=== PATIENT | female | born 1980 | race Asian ===

== ENCOUNTER 2016-12-07 04:55 | Inpatient (IN) | payer OTHER ==
[~2016-12-07] VITALS: Ht 154.9 cm; Wt 67.1 kg
[2016-12-07] MEDS ORDERED: OXYTOCIN/NORMAL SALINE 1,000 ML IV SCH ×2 (05:03→20:18)
[2016-12-07] MEDS ORDERED: NALBUPHINE HCL 10 MG/ML AMP IVP PRN (05:15)
[2016-12-07] MEDS ORDERED: AMPICILLIN SODIUM 2 GM VIAL ONE (05:48)
[2016-12-07] MEDS: LR 1,000 ML IV SCH ×2 (05:54→19:50)
[2016-12-07] MEDS ORDERED: AMPICILLIN SODIUM 2 GM in NS 100 ML IV ONE (06:00)
[2016-12-07 06:29] VITALS: BP_SYST 110
[2016-12-07 06:44] LABS: BASOPHILS % (AUTO) 0.4 % (0.0-2.0); EOSINOPHILS # (AUTO) 0.1 K/uL (0.0-0.4); EOSINOPHILS % (AUTO) 1.3 % (0.0-4.0); HEMATOCRIT 34.1 % (36-48); HEMOGLOBIN 11.6 g/dL (12.0-16.0); LYMPHOCYTES # (AUTO) 1.5 K/uL (1.0-5.5); LYMPHOCYTES % (AUTO) 19.3 % (20.5-51.5); MEAN CORPUSCULAR HEMOGLOBIN 32 pg (27-31); MEAN CORPUSCULAR HGB CONC 34 % (32-36); MEAN CORPUSCULAR VOLUME 95 fL (79.0-98.0); MONOCYTES # (AUTO) 0.5 K/uL (0.0-1.0); MONOCYTES % (AUTO) 6.4 % (1.7-9.3); NEUTROPHILS # (AUTO) 5.5 K/uL (1.8-7.7); NEUTROPHILS % (AUTO) 72.6 % (40.0-70.0); PLATELET COUNT (AUTO) 207 K/uL (130-430); RED BLOOD CELL COUNT(AUTO) 3.59 MIL/uL (4.2-6.2); RED CELL DISTRIBUTION WIDTH 12.6 % (9.0-15.0); WHITE BLOOD COUNT (AUTO) 7.6 K/uL (4.8-10.8)
[2016-12-07] MEDS ORDERED: FENT2mCg/mL-ROPIVA0.2%/NS EPID 150 ML EP ONE (08:45)
[2016-12-07] MEDS: AMPICILLIN SODIUM 1 GM in NS 50 ML IV SCH ×3 (09:55→19:03)
[2016-12-07] MEDS ORDERED: OXYTOCIN/NORMAL SALINE 1,000 ML IV ONE (20:18)
[2016-12-07] MEDS ORDERED: DOCUSATE SODIUM 100 MG CAPSULE PO PRN (20:30)
[2016-12-07] MEDS ORDERED: DERMOPLAST SPRAY TP PRN (20:30)
[2016-12-07] MEDS ORDERED: HYDROcodone/ACETAMIN 5-325 MG TAB (NORCO/ VICODIN) PO PRN ×2 (20:30)
[2016-12-07] MEDS ORDERED: SENNOSIDES/DOCUSATE SODIUM 1 TAB TABLET(SENOKOT-S) PO PRN (20:30)
[2016-12-07] MEDS ORDERED: METHYLERGONOVINE MALEATE 0.2 MG TABLET PO PRN (20:30)
[2016-12-07] MEDS ORDERED: LANOLIN 7 GM OINT. TP PRN (20:30)
[2016-12-07] MEDS ORDERED: HYDROCORTISONE 0.5%, 28.35 GM TOPICAL CREAM TP PRN (20:30)
[2016-12-07] MEDS ORDERED: GLYCERIN/WITCH HAZEL (TUCKS PADS) TP PRN (20:30)
[2016-12-07] MEDS ORDERED: ANUSOL 1 EA SUPP.RECT (PREPARATION H) RC PRN (20:30)
[2016-12-07] MEDS ORDERED: TEMAZEPAM 15 MG CAPSULE PO PRN (21:00)
[2016-12-08] MEDS: IBUPROFEN 600 MG TABLET PO SCH ×4 (06:30→18:36)
[2016-12-08 06:33] LABS: EOSINOPHILS # (AUTO) 0.1 K/uL (0.0-0.4); EOSINOPHILS % (AUTO) 0.8 % (0.0-4.0)
[2016-12-08 06:43] LABS: BASOPHILS % (AUTO) 0.2 % (0.0-2.0); HEMATOCRIT 31.4 % (36-48); HEMOGLOBIN 10.5 g/dL (12.0-16.0); LYMPHOCYTES # (AUTO) 1.4 K/uL (1.0-5.5); LYMPHOCYTES % (AUTO) 10.6 % (20.5-51.5); MEAN CORPUSCULAR HEMOGLOBIN 32 pg (27-31); MEAN CORPUSCULAR HGB CONC 34 % (32-36); MEAN CORPUSCULAR VOLUME 95 fL (79.0-98.0); MONOCYTES # (AUTO) 0.9 K/uL (0.0-1.0); MONOCYTES % (AUTO) 7.2 % (1.7-9.3); NEUTROPHILS # (AUTO) 10.3 K/uL (1.8-7.7); NEUTROPHILS % (AUTO) 81.2 % (40.0-70.0); PLATELET COUNT (AUTO) 185 K/uL (130-430); WHITE BLOOD COUNT (AUTO) 12.7 K/uL (4.8-10.8)
[2016-12-08] MEDS ORDERED: DOCU-144 PO (14:55)
[2016-12-08] MEDS ORDERED: IBUP-1969 PO (14:55)
== END 2016-12-08 20:54 | disposition home or self-care (01) | DRG 775 ==
LOC: SPU 04:55
PROVIDERS: ADMIT Obstetrics & Gynecology; ATTEND Obstetrics & Gynecology
PROC: 10E0XZZ Delivery of Products of Conception, External Approach (ICD-10-PCS; principal; 2016-12-07)
PROC: 4A0HXCZ Measurement of Products of Conception, Cardiac Rate, External Approach (ICD-10-PCS; 2016-12-07)
PROC: 3E0S3CZ (ICD-10-PCS; 2016-12-07)
PROC: 00HU33Z Insertion of Infusion Device into Spinal Canal, Percutaneous Approach (ICD-10-PCS; 2016-12-07)
DX: O99.824 Streptococcus B carrier state complicating childbirth (principal); Z3A.39 39 weeks gestation of pregnancy; Z37.0 Single live birth
CPT/HCPCS: 36415; 85025; 86592; 86886; 86900; 86901; J0290; J2590; J3010; J7120